=== PATIENT | female | born 1985 | race African-American/Black ===

== ENCOUNTER 2017-07-13 09:59 | Emergency (ER) | payer OTHER ==
[~2017-07-13] VITALS: Ht 167.6 cm; Wt 98.9 kg
[~2017-07-13 09:59] MED LIST: ACETAMINOPHEN-1 EAC1 ORAL; ALBUTEROL SULF8.5 GM INH; AMOXICILLIN500 MG ORAL; BENADRYL50 MG ORAL; DIFLUCAN100 MG ORAL; FLUCONAZOLE100 MG ORAL; IBUPROFEN600 MG ORAL; MEDROL DOSEPAK4 MG ORAL; MELOXICAM15 MG PO; METRONIDAZOLE500 MG ORAL; NITROFURANTOIN100 M2 ORAL
[2017-07-13 10:36] LABS: BASOPHILS % (AUTO) 2.2 % (0.0-2.0); EOSINOPHILS % (AUTO) 12.5 % (0.0-3.0); HEMATOCRIT 45.1 % (37.0-47.0); HEMOGLOBIN 14.4 G/DL (12.0-16.0); MEAN CORPUSCULAR VOLUME 84 FL (80-99); MONOCYTES % (AUTO) 7.1 % (1.0-10.0); NEUTROPHILS % (AUTO) 46.2 % (45.0-75.0); PLATELET COUNT 232 K/UL (150-450); RED BLOOD COUNT 5.38 M/UL (4.20-5.40); RED CELL DISTRIBUTION WIDTH 12.7 % (11.6-14.8)
[2017-07-13 10:37] LABS: APPEARANCE,URINE SLIGHTLY CLOUDY; BILIRUBIN, URINE NEGATIVE (NEGATIVE); COLOR,URINE PALE YELLOW; GLUCOSE, URINE (UA) NEGATIVE (NEGATIVE); KETONES,URINE NEGATIVE (NEGATIVE); LEUKOCYTE ESTERASE ,URINE NEGATIVE (NEGATIVE); NITRITE,URINE NEGATIVE (NEGATIVE); PH,URINE 8 (4.5-8.0); PROTEIN,URINE NEGATIVE (NEGATIVE); UROBILINOGEN,URINE NORMAL MG/DL (0.0-1.0)
[2017-07-13 11:07] LABS: ANION GAP 4 mmol/L (5-15); BLOOD UREA NITROGEN 10 mg/dL (7-18); CALCIUM 9.3 MG/DL (8.5-10.1); CARBON DIOXIDE 30 MMOL/L (21-32); CHLORIDE 104 MMOL/L (98-107); POTASSIUM 3.5 MMOL/L (3.5-5.1); SODIUM 138 MMOL/L (136-145)
[2017-07-13 11:11] LABS: ALANINE AMINOTRANSFERASE 30 U/L (12-78); ALBUMIN 3.8 G/DL (3.4-5.0); ALBUMIN/GLOBULIN RATIO 0.8 (1.0-2.7); ALKALINE PHOSPHATASE 81 U/L (46-116); ASPARTATE AMINO TRANSFERASE 27 U/L (15-37); BILIRUBIN,TOTAL 0.3 MG/DL (0.2-1.0)
[2017-07-13] MEDS ORDERED: Fluconazole 100mg tab ORAL ONE (11:30)
--- NOTE | 2017-07-13 13:09 | Emergency Room Report ---
History of Present Illness General Chief Complaint: Abdominal Pain Source: Patient Present Illness HPI 32-year-old female, presenting with vaginal discomfort, white thick vaginal discharge. Slight burning with urination. No risk for any STDs. No nausea no vomiting. Does have a history of endometriosis but states that this is not related. 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 Review of Systems All Other Systems: negative except mentioned in HPI Physical Exam Vital Signs Date Time Temp Pulse Resp B/P (MAP) Pulse Ox O2 Delivery O2 Flow Rate FiO2 07/13/17 10:06 98.1 85 17 128/83 98 Room Air 98.1 Sp02 EP Interpretation: reviewed, normal General Appearance: normal inspection, well appearing, no apparent distress, alert, GCS 15, non-toxic Head: normocephalic, atraumatic Eyes: bilateral eye normal inspection, bilateral eye PERRL, bilateral eye EOMI ENT: normal ENT inspection, normal pharynx, normal voice, moist mucus membranes Neck: normal inspection, full range of motion, supple Respiratory: normal inspection, lungs clear, normal breath sounds, no respiratory distress, no retraction, no wheezing, speaking full sentences, chest symmetrical Cardiovascular #1: normal inspection, regular rate, rhythm, no edema, normal capillary refill Cardiovascular #2: 2+ radial (R), 2+ radial (L) Gastrointestinal: normal inspection, non tender, soft, non-distended, no guarding Genitourinary: other - Labia majora with redness, swelling, thick white vaginal discharge noted Musculoskeletal: normal inspection, back normal, normal range of motion, non- tender Neurologic: normal inspection, alert, oriented x3, responsive, motor strength/ tone normal, sensory intact, normal gait, speech normal Psychiatric: normal inspection, judgement/insight normal, memory normal Skin: normal inspection, normal color, no rash, warm/dry, well hydrated, normal turgor Medical Decision Making Diagnostic Impression: Primary Impression: Vaginal yeast infection ER Course 32-year-old female with vaginal discomfort and discharge DDX: UTI versus yeast infection States she has no risk of having STD Plan: Labs, UA, urine culture, fluconazole ER course: Patient has remained stable during ED stay. Given fluconazole Disposition: Patient is to be discharged to home. Patient is instructed to follow up with their primary care doctor within 5 days. Strict return precautions discussed with patient such as fever, chills, worsening/severe pain, nausea, vomiting, which may indicate severe illness. Patient verbalizes understanding and agrees with plan. Please note that this Emergency Department Report was dictated using [employer] technology software, occasionally this can lead to erroneous entry secondary to interpretation by the dictation equipment Last Vital Signs Date Time Temp Pulse Resp B/P (MAP) Pulse Ox O2 Delivery O2 Flow Rate FiO2 07/13/17 10:06 98.1 85 17 128/83 98 Room Air 98.1 Disposition: HOME, SELF-CARE Condition: Improved Patient Instructions: Vaginitis, [id number] Neel Mcgowan M.D. Jul 13, 2017 13:09
[2017-07-13 14:24] VITALS: BP 138/84
== END 2017-07-13 11:50 | disposition home or self-care (01) ==
LOC: EMR 10:21
DX: B37.3 Candidiasis of vulva and vagina (principal)
CPT/HCPCS: 36415; 80053; 81003; 81025; 83690; 85025; 99284